=== PATIENT | female | born 1985 | race Caucasian/White ===

== ENCOUNTER 2021-08-03 17:09 | Observation (INO) | payer OTHER ==
--- NOTE | 2021-08-03 17:11 | ERPHSYRPT ---
- History of Present Illness Time Seen by Provider: 08/03/21 17:11 Historian: patient Exam Limitations: no limitations Physician History: This is an overweight 36-year-old white female who has had a cholecystectomy in the past and presents with relatively sudden onset of bilateral upper quadrant epigastric abdominal pain that started this morning and has progressively worsened. She has had associated vomiting today. She denies chest pain. She denies diarrhea. The pain is sharp and constant. Patient states it does feel like gallbladder pain that she had in the past. Patient recently had all her teeth removed and she has been drinking clear thick and full liquids. She also had some stuffing last night. She was feeling fine last night Timing/Duration: today Activities at Onset: none Abdominal Pain Onset Location: RUQ, LUQ, epigastric Pain Radiation: no radiation Severity of Pain-Max: moderate Severity of Pain-Current: moderate Modifying Factors: Improves With: nothing Associated Symptoms: loss of appetite, nausea, vomiting, No chest pain, No diaphoresis, No diarrhea Previous symptoms: no prior history, no recent treatment Allergies/Adverse Reactions: No Known Drug Allergies Allergy (Unverified 08/03/21 17:30) Home Medications: No Reportable Medications [No Reported Medications] 08/03/21 [History] Travel Risk - International Travel Have you traveled outside of the country in past 3 weeks: No - Coronavirus Screening Are you exhibiting any of the following symptoms?: No Close contact with a COVID-19 positive Pt in past 14-21 Days: No - Review of Systems Constitutional: No Symptoms Eyes: No Symptoms Ears, Nose, & Throat: No Symptoms Respiratory: No Symptoms Cardiac: No Symptoms Abdominal/Gastrointestinal: Abdominal Pain, Nausea, Vomiting, No Diarrhea, No Constipation Genitourinary Symptoms: No Symptoms Musculoskeletal: No Symptoms Skin: No Symptoms Neurological: No Symptoms Psychological: No Symptoms Endocrine: No Symptoms Hematologic/Lymphatic: No Symptoms Immunological/Allergic: No Symptoms All Other Systems: Reviewed and Negative - Past Medical History Pertinent Past Medical History: Yes - Past Surgical History Past Surgical History: Yes - Nursing Vital Signs Nursing Vital Signs: Initial Vital Signs Temperature 97.2 F 08/03/21 17:20 Pulse Rate 77 08/03/21 17:20 Respiratory Rate 18 08/03/21 17:20 Blood Pressure 117/83 08/03/21 17:20 O2 Sat by Pulse Oximetry 98 08/03/21 17:20 Pain Scale Pain Intensity 4 - Physical Exam General Appearance: mild distress, alert, anxiety, obese Eye Exam: PERRL/EOMI, eyes nml inspection Ears, Nose, Throat Exam: normal ENT inspection, moist mucous membranes Neck Exam: normal inspection, non-tender, supple, full range of motion Respiratory Exam: normal breath sounds, lungs clear, airway intact, No chest tenderness, No respiratory distress Cardiovascular Exam: regular rate/rhythm, normal heart sounds, normal peripheral pulses Gastrointestinal/Abdomen Exam: soft, normal bowel sounds, tenderness, guarding (Bilateral upper quadrants and epigastric area), No pulsatile mass Pelvic Exam: not done Rectal Exam: not done Back Exam: normal inspection, normal range of motion, No CVA tenderness, No vertebral tenderness Extremity Exam: normal inspection, normal range of motion, pelvis stable Neurologic Exam: alert, oriented x 3, cooperative, 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, normal mood/affect, nml cerebellar function, nml station & gait, sensation nml Skin Exam: normal color, warm, dry Lymphatic Exam: No adenopathy SpO2 Interpretation: normal O2 Delivery: Room Air - Course Nursing assessment & vital signs reviewed: Yes Ordered Tests: Active Orders 24 hr Category Date Time Status IV Insertion STAT Care 08/03/21 17:18 Active ABDOMEN AND PELVIS W/0 CONTRAS [CT] Stat Exams 08/03/21 17:19 Taken AMYLASE Stat Lab 08/03/21 17:50 Completed CBC W DIFF Stat Lab 08/03/21 17:50 Completed CMP Stat Lab 08/03/21 17:50 Completed CULTURE,URINE Stat Lab 08/03/21 17:30 Received HCG,QUALITATIVE URINE Stat Lab 08/03/21 17:30 Completed LIPASE Stat Lab 08/03/21 17:50 Completed UA W/RFX CULTURE Stat Lab 08/03/21 17:30 Completed Medication Summary Generic Name Dose Route Start Last Admin Trade Name Freq PRN Reason Stop Dose Admin Piperacillin Sod/Tazobactam 100 mls @ 200 mls/hr 08/03/21 19:33 Sod 3.375 gm/ Sodium Chloride IV 08/03/21 20:02 STAT ONE Discontinued Medications Generic Name Dose Route Start Last Admin Trade Name Freq PRN Reason Stop Dose Admin Hydromorphone HCl 1 mg 08/03/21 17:18 08/03/21 17:51 Hydromorphone 1 Mg/1ml Inj 1 Mg/Ml Syringe IV 08/03/21 17:19 1 mg STAT ONE Administration Hydromorphone HCl Confirm 08/03/21 17:49 Hydromorphone 1 Mg/1ml Inj 1 Mg/Ml Syringe Administered 08/03/21 17:50 Dose 1 mg .ROUTE .STK-MED ONE Sodium Chloride 1,000 mls @ 999 mls/hr 08/03/21 17:18 08/03/21 19:19 Sodium Chloride 0.9% 1000 Ml IV 08/03/21 18:18 Infused .Q1H1M STA Infusion Sodium Chloride Confirm 08/03/21 17:49 Sodium Chloride 0.9% 1000 Ml Administered 08/03/21 17:50 Dose 1,000 mls @ ud .ROUTE .STK-MED ONE Ondansetron HCl 4 mg 08/03/21 17:18 08/03/21 17:52 Ondansetron Hcl 4 Mg/2 Ml Vial IV 08/03/21 17:19 4 mg STAT ONE Administration Ondansetron HCl Confirm 08/03/21 17:49 Ondansetron Hcl 4 Mg/2 Ml Vial Administered 08/03/21 17:50 Dose 4 mg .ROUTE .STK-MED ONE Pantoprazole Sodium 40 mg 08/03/21 17:18 08/03/21 17:51 Pantoprazole 40 Mg Vial IV 08/03/21 17:19 40 mg STAT ONE Administration Pantoprazole Sodium Confirm 08/03/21 17:49 Pantoprazole 40 Mg Vial Administered 08/03/21 17:50 Dose 40 mg IV .STK-MED ONE Lab/Rad Data: Laboratory Result Diagrams 08/03/21 17:50 08/03/21 17:50 Laboratory Results 08/03/21 08/03/21 08/03/21 Range/Units 17:50 17:50 17:30 WBC 20.2 H (4.0-10.5) x10^3/uL RBC 4.83 (4.1-5.4) x10^6/uL Hgb 14.5 (12.0-16.0) g/dL Hct 42.5 (35-47) % MCV 88.0 (78-100) fL MCH 30.0 (26-32) pg MCHC 34.1 (32-36) g/dL RDW 13.4 (11.5-14.0) % Plt Count 352 (150-450) x10^3/uL MPV 10.9 (7.5-11.0) fL Gran % 81.7 H (36.0-66.0) % Immature Gran % (Auto) 0.5 H (0.00-0.4) % Nucleat RBC Rel Count 0.0 (0.00-0.1) % Eos # (Auto) 0.10 (0-0.5) x10^3/uL Immature Gran # (Auto) 0.10 H (0.00-0.03) x10^3u/L Absolute Lymphs (auto) 2.36 (1.0-4.6) x10^3/uL Absolute Monos (auto) 1.06 (0.0-1.3) x10^3/uL Absolute Nucleated RBC 0.00 (0.00-0.01) x10^3u/L Lymphocytes % 11.7 L (24.0-44.0) % Monocytes % 5.2 (0.0-12.0) % Eosinophils % 0.5 (0.00-5.0) % Basophils % 0.4 (0.0-0.4) % Absolute Granulocytes 16.53 H (1.4-6.9) x10^3/uL Basophils # 0.08 (0-0.4) x10^3/uL Sodium 137 (137-145) mmol/L Potassium 4.3 (3.5-5.1) mmol/L Chloride 104 (98-107) mmol/L Carbon Dioxide 24 (22-30) mmol/L Anion Gap 13.1 (5-15) MEQ/L BUN 7 (7-17) mg/dL Creatinine 0.70 (0.52-1.04) mg/dL Estimated GFR > 60.0 ML/MIN Glucose 112 H (74-106) mg/dL Calcium 9.6 (8.4-10.2) mg/dL Total Bilirubin 0.50 (0.2-1.3) mg/dL AST 28 (14-36) U/L ALT 28 (0-35) U/L Alkaline Phosphatase 127 H (38-126) U/L Serum Total Protein 8.0 (6.3-8.2) g/dL Albumin 4.3 (3.5-5.0) g/dL Amylase 57 (30-110) U/L Lipase 44 (23-300) U/L Urinalys Dipstick Clnc MAIN LAB Urine Color YELLOW (YELLOW) Urine Appearance CLEAR (CLEAR) Urine pH 8.5 (5-6) Ur Specific [place] 1.025 (1.005-1.025) POC Urine Protein Conf NEGATIVE (Negative) Urine Ketones SMALL-15 (NEGATIVE) Urine Nitrite NEGATIVE (NEGATIVE) Urine Bilirubin NEGATIVE (NEGATIVE) Urine Urobilinogen 0.2 (0-1) mg/dL Urine Leukocytes TRACE (NEGATIVE) Urine WBC (Auto) 0-2 (0-5) /HPF Urine RBC (Auto) 3-5 (0-2) /HPF U Epithel Cells (Auto) RARE (FEW) /HPF Urine Bacteria (Auto) NONE SEEN (NEGATIVE) /HPF Urine RBC SMALL (0-5) Thaddeus/ul Urine Mucus (Auto) SLIGHT (NEGATIVE) /HPF Ur Culture Indicated? YES Urine Glucose NEGATIVE (NEGATIVE) mg/dL Urine HCG, Qual (Negative) 08/03/21 Range/Units 17:30 WBC (4.0-10.5) x10^3/uL RBC (4.1-5.4) x10^6/uL Hgb (12.0-16.0) g/dL Hct (35-47) % MCV (78-100) fL MCH (26-32) pg MCHC (32-36) g/dL RDW (11.5-14.0) % Plt Count (150-450) x10^3/uL MPV (7.5-11.0) fL Gran % (36.0-66.0) % Immature Gran % (Auto) (0.00-0.4) % Nucleat RBC Rel Count (0.00-0.1) % Eos # (Auto) (0-0.5) x10^3/uL Immature Gran # (Auto) (0.00-0.03) x10^3u/L Absolute Lymphs (auto) (1.0-4.6) x10^3/uL Absolute Monos (auto) (0.0-1.3) x10^3/uL Absolute Nucleated RBC (0.00-0.01) x10^3u/L Lymphocytes % (24.0-44.0) % Monocytes % (0.0-12.0) % Eosinophils % (0.00-5.0) % Basophils % (0.0-0.4) % Absolute Granulocytes (1.4-6.9) x10^3/uL Basophils # (0-0.4) x10^3/uL Sodium (137-145) mmol/L Potassium (3.5-5.1) mmol/L Chloride (98-107) mmol/L Carbon Dioxide (22-30) mmol/L Anion Gap (5-15) MEQ/L BUN (7-17) mg/dL Creatinine (0.52-1.04) mg/dL Estimated GFR ML/MIN Glucose (74-106) mg/dL Calcium (8.4-10.2) mg/dL Total Bilirubin (0.2-1.3) mg/dL AST (14-36) U/L ALT (0-35) U/L Alkaline Phosphatase (38-126) U/L Serum Total Protein (6.3-8.2) g/dL Albumin (3.5-5.0) g/dL Amylase (30-110) U/L Lipase (23-300) U/L Urinalys Dipstick Clnc Urine Color (YELLOW) Urine Appearance (CLEAR) Urine pH (5-6) Ur Specific [place] (1.005-1.025) POC Urine Protein Conf (Negative) Urine Ketones (NEGATIVE) Urine Nitrite (NEGATIVE) Urine Bilirubin (NEGATIVE) Urine Urobilinogen (0-1) mg/dL Urine Leukocytes (NEGATIVE) Urine WBC (Auto) (0-5) /HPF Urine RBC (Auto) (0-2) /HPF U Epithel Cells (Auto) (FEW) /HPF Urine Bacteria (Auto) (NEGATIVE) /HPF Urine RBC (0-5) Thaddeus/ul Urine Mucus (Auto) (NEGATIVE) /HPF Ur Culture Indicated? Urine Glucose (NEGATIVE) mg/dL Urine HCG, Qual NEGATIVE (Negative) - Progress Progress: improved, pain not gone completely Progress Note: 08/03/21 19:40 CAT scan of the abdomen pelvis shows acute appendicitis without evidence of perforation or abscess. In addition, there is a 3.8 cm cystic structure within the right adnexa likely right ovarian cyst. Recommend further evaluation with ultrasound on a nonemergent basis. These findings were discussed with the patient. 08/03/21 19:43 Medical decision making: I spoke with Dr. Massimo Flowers, our general surgeon. He will be performing laparoscopic, possible open appendectomy at around 9 PM this evening. Patient will stay in the emergency department until time of surgery. Discussed with : Michael Counseled pt/family regarding: lab results, diagnosis, rad results - Departure Departure Disposition: Home Clinical Impression: Acute appendicitis, Right ovarian cyst Condition: Stable Critical Care Time: No
[2021-08-03] MEDS ORDERED: PROTONIX 40 MG IV IV ONE ×2 (17:18→17:49)
[2021-08-03] MEDS ORDERED: Zofran 4 MG/2 ML VIAL IV ONE ×2 (17:18→19:54)
[2021-08-03] MEDS ORDERED: Sodium Chloride 0.9% 1000 ML 1,000 ML IV STA ×2 (17:18→19:39)
[2021-08-03] MEDS ORDERED: Hydromorphone 1 mg/ml Injection IV ONE ×2 (17:18→19:54)
[2021-08-03 17:39] LABS: Appearance CLEAR (CLEAR); Bilirubin NEGATIVE (NEGATIVE); Dipstick done @ ? MAIN LAB; Glucose NEGATIVE (NEGATIVE); Ketones SMALL-15 (NEGATIVE); Nitrite NEGATIVE (NEGATIVE); Ph 8.5 (5-6); Protein,Urine Dip NEGATIVE (Negative); RBC SMALL Ery/ul (0-5); Specific Gravity 1.025 (1.005-1.025); Urobilinogen 0.2 mg/dL (0-1)
[2021-08-03 17:44] LABS: Epithelial Cells RARE /HPF (FEW); Mucus SLIGHT /HPF (NEGATIVE); WBC 0-2 /HPF (0-5)
[2021-08-03 17:47] LABS: Bacteria NONE SEEN /HPF (NEGATIVE)
[2021-08-03] MEDS ORDERED: Zofran 4 MG/2 ML VIAL ONE ×4 (17:49→22:18)
[2021-08-03] MEDS ORDERED: Hydromorphone 1 mg/ml Injection ONE ×3 (17:49→22:02)
[2021-08-03] MEDS ORDERED: Sodium Chloride 0.9% 1000 ML 1,000 ML ONE ×2 (17:49→19:43)
[2021-08-03 17:50] LABS: Urine Cultured Indicated? YES
[2021-08-03 18:07] LABS: Absolute Neutrophil Ct (ANC) 16.53 x10^3/uL (1.4-6.9); Basophil (Absolute #) 0.08 x10^3/uL (0-0.4); Eosinophil % 0.5 % (0.00-5.0); Hematocrit 42.5 % (35-47); Hemoglobin 14.5 g/dL (12.0-16.0); Lymphocyte (Absolute #) 2.36 x10^3/uL (1.0-4.6); Lymphocytes % 11.7 % (24.0-44.0); Mean Corpuscular Hgb Concent. 34.1 g/dL (32-36); Mean Platelet Volume 10.9 fL (7.5-11.0); Monocyte (Absolute #) 1.06 x10^3/uL (0.0-1.3); Monocytes % 5.2 % (0.0-12.0); Neutrophil % 81.7 % (36.0-66.0); Platelet Count 352 x10^3/uL (150-450); Red Blood Count 4.83 x10^6/uL (4.1-5.4); Red Cell Distribution Width 13.4 % (11.5-14.0); White Blood Count 20.2 x10^3/uL (4.0-10.5)
[2021-08-03 18:19] LABS: ALBUMIN 4.3 g/dL (3.5-5.0); ALKALINE PHOSPHATASE 127 U/L (38-126); AMYLASE 57 U/L (30-110); ANION GAP 13.1 MEQ/L (5-15); BLOOD UREA NITROGEN 7 mg/dL (7-17); CHLORIDE 104 mmol/L (98-107); Calcium 9.6 mg/dL (8.4-10.2); Carbon Dioxide 24 mmol/L (22-30); EST GLOMERULAR FILTRATION RATE > 60.0 ML/MIN; Glucose 112 mg/dL (74-106); LIPASE 44 U/L (23-300); Potassium 4.3 mmol/L (3.5-5.1); SGOT/AST 28 U/L (14-36); SGPT/ALT 28 U/L (0-35); SODIUM 137 mmol/L (137-145)
[2021-08-03] MEDS ORDERED: PIPERACILLIN/TAZOBACTAM 3.375 GM in Sodium Chloride 100ML MINI-BAG PLUS 100 ML IV ONE (19:33)
[2021-08-03] MEDS ORDERED: Sodium Chloride 100ML MINI-BAG PLUS 100 ML IV ONE (19:41)
[2021-08-03] MEDS ORDERED: PIPERACILLIN/TAZOBACTAM IV ONE (19:41)
--- NOTE | 2021-08-03 20:42 | XRAY ---
Indication: Right upper quadrant and epigastric pain. Vomiting. Multiple contiguous axial images obtained through the abdomen and pelvis without contrast. Comparison: None Lung bases clear. Heart not enlarged. Noncontrasted stomach and bowel loops appear nonobstructed. Prominent appendix up to 12 mm in diameter with 3-4 mm proximal/distal appendicoliths and minimal periappendiceal stranding favoring acute appendicitis. No free fluid/air. Incidental 5.4 cm right ovary cyst and cholecystectomy clips. Remaining liver, pancreas, spleen, adrenal glands, kidneys, ureters, bladder, uterus, and aorta are unremarkable for noncontrast exam. Osseous structures intact. Impression: 1. CT findings as detailed favoring acute appendicitis. No complications. 2. 5.4 cm right ovary cyst better evaluated with ultrasound if clinically warranted. Comment: Preliminary interpretation made by [facility]. No critical discrepancy.
[2021-08-03] MEDS ORDERED: Lactated Ringers 1,000 ML IV ONE (20:45)
[2021-08-03] MEDS ORDERED: Sensorcaine 0.25% 10 ML ONE (20:45)
[2021-08-03] MEDS ORDERED: Decadron 4 MG INJ ONE (20:50)
[2021-08-03] MEDS ORDERED: Xylocaine-Mpf 2% 5 Ml Vial ONE (20:50)
[2021-08-03] MEDS ORDERED: BRIDION 200MG/2ML IV ONE (20:50)
[2021-08-03] MEDS ORDERED: DIPRIVAN 200 MG/20 ML IV ONE (20:50)
[2021-08-03] MEDS ORDERED: TORAdol 30 mg Injection ONE (20:50)
[2021-08-03] MEDS ORDERED: Zemuron 100 MG/10 ML ONE (20:51)
[2021-08-03] MEDS ORDERED: SUBLIMAZE 250 MCG/5 ML ONE (20:51)
[2021-08-03 21:01] LABS: INFLUENZA A NEGATIVE (NEGATIVE); INFLUENZA B NEGATIVE (NEGATIVE); RESPIRATORY SYNCTIAL VIRUS NEGATIVE (Negative); SARS-CoV-2 Xpert Express NEGATIVE (NEGATIVE)
[2021-08-03] MEDS ORDERED: KEFZOL 1 GM ONE (21:10)
[2021-08-03] MEDS ORDERED: Compazine 10 MG/2 ML ONE (21:58)
[2021-08-03] MEDS ORDERED: SUBLIMAZE 100 MCG/2 ML ONE (22:02)
[2021-08-03] MEDS ORDERED: NORCO 5/325 MG PO PRN (22:53)
[2021-08-03] MEDS ORDERED: Zofran 4 MG/2 ML VIAL IV PRN (22:54)
[2021-08-03] MEDS ORDERED: Unasyn 3 GM Vial ONE (23:47)
[2021-08-03] MEDS ORDERED: Sodium Chloride 0.9% 100 ML ONE (23:49)
[2021-08-03] MEDS: Unasyn 3 GM Vial*** 3 G in Sodium Chloride 100ML MINI-BAG PLUS 100 ML IV SCH (23:55)
[2021-08-04] MEDS ORDERED: Lactated Ringers 1,000 ML IV SCH (05:00)
[2021-08-04] MEDS ORDERED: Unasyn 3 GM Vial ONE (05:38)
[2021-08-04] MEDS ORDERED: Sodium Chloride 0.9% 100 ML ONE (05:40)
[2021-08-04] MEDS: Unasyn 3 GM Vial*** 3 G in Sodium Chloride 100ML MINI-BAG PLUS 100 ML IV SCH (05:49)
[2021-08-04 06:03] LABS: Hematocrit 39.9 % (35-47); Hemoglobin 13.5 g/dL (12.0-16.0); Mean Cell Volume 89.5 fL (78-100); Mean Corpuscular Hemoglobin 30.3 pg (26-32); Mean Corpuscular Hgb Concent. 33.8 g/dL (32-36); Mean Platelet Volume 11.1 fL (7.5-11.0); Platelet Count 307 x10^3/uL (150-450); Red Blood Count 4.46 x10^6/uL (4.1-5.4); Red Cell Distribution Width 13.7 % (11.5-14.0); White Blood Count 17.7 x10^3/uL (4.0-10.5)
[2021-08-04 08:10] VITALS: BP 99/52; PULSE 68; O2SAT 94
--- NOTE | 2021-08-06 10:31 | OP ---
SURGERY DATE/TIME: 08/03/2021 PREOPERATIVE DIAGNOSIS: Acute appendicitis. POSTOPERATIVE DIAGNOSIS: Acute appendicitis. PROCEDURE: Laparoscopic appendectomy. SURGEON: Massimo Flowers M.D. ANESTHESIA: General. COMPLICATIONS: None. CONDITION: Stable. ESTIMATED BLOOD LOSS: 150 cc. INDICATION: A patient with acute appendicitis. Seen and examined in the emergency room. White count 20,000. CT positive. Abdomen consistent with appendicitis. DESCRIPTION OF PROCEDURE: Taken to the OR. General anesthetic. Routine prep and drape. She was a quite robust lady. Veress inserted at the umbilicus in the midline at an oblique angle. Popped in nicely, inflated from 4 to 15. A 5 port was placed in the right upper quadrant, 5 port placed in right lower quadrant, 12 port then brought in at the umbilicus. She was quite obese. The lens initially was a little hazy and fuzzy but it got straightened out. The appendix was short, was 2.5 inches and it laid right over the pelvic brim down towards the uterus. There were some adhesions on the right ovary and tube to the pelvis side wall and to the deep pelvic side wall. It had about a 4 cm cyst that appeared benign. The left adnexa also had some fixation appeared benign. Uterus satisfactory. The Veress needle was in the open air in the middle when it was first seen by the right upper quadrant port. There was light mobilization of the cecum from the iliac pelvic brim. At this time the mesoappendix, appendix were taken with one cartridge 2.5 at its base clearly across the tinea, placed in a condom bag and removed. There was about 100 cc of blood in the mid, starting over by the appendiceal-mesoappendix and then running across small loops over towards the left side. It looked like an adhesion was torn from the pneumoperitoneum on the left side by the sigmoid. I did not see anything specific about this or anything that needed any action. After this blood was suctioned, it did not recur. The retroperitoneum seemed okay. In the mesentery there was no specific hole or squirting sign any place. It certainly settled but it was a little unclear the mechanism of this. The hole closure device was not used as the hole was oblique enough that the finger could not be shoved in this hole at all. Skin closed with 4-0 Vicryl and Steri-Strips. The patient tolerated the procedure satisfactorily with the above findings.
--- NOTE | 2021-08-06 14:16 | SSS ---
DISCHARGE DIAGNOSIS: ACUTE APPENDICITIS. PROCEDURE: Laparoscopic appendectomy by Dr. Massimo Flowers. HISTORY: The patient is a 36-year-old white female who presented to the emergency room with complaints of abdominal pain. She reports it was upper in nature initially where she previously had her gallbladder removed. During the evaluation the patient had a CT scan which was concerning for the possibility of acute appendicitis. The patient was kept in the emergency room until the surgeons arrived. They performed a laparoscopic appendectomy and the patient was placed in observation. HOSPITAL COURSE: While the patient was in observation did well overnight. She was able to eat by the next morning and was looking quite good and ready for discharge home. She was discharged home on Augmentin 875 twice a day and [place] PRN for pain. She will follow up in the surgeon's office in the next week and she is to return to the hospital for any further problems in the interim.
== END 2021-08-04 10:55 | disposition home or self-care (01) ==
LOC: ED 17:09 → MED SURG 22:35
PROVIDERS: ADMIT Family Medicine; ATTEND Family Medicine
DX: K35.80 Unspecified acute appendicitis (principal); Z20.828 Contact with and (suspected) exposure to other viral communicable diseases
CPT/HCPCS: 0241U; 36000; 36415; 44970; 74176; 80053; 81015; 81025; 82150; 83690; 85025; 85027; 87086; 96360; 96374; 96375; 99284; 96361; 96365; 96376; G0378; J0295; J0690; J1100; J1170; J1885; J2405; J2704; J3010; A9270-GY

== ENCOUNTER 2022-10-14 22:22 | Inpatient (IN) | payer OTHER ==
[2022-10-14] MEDS ORDERED: Zofran 4 MG/2 ML VIAL IV PRN (22:43)
[2022-10-14] MEDS ORDERED: XYLOCAINE 1% HCL 20 ML MDV IJ PRN (22:43)
[2022-10-14] MEDS ORDERED: Nubain 10 MG/ML IV PRN (22:43)
[2022-10-14] MEDS ORDERED: TYLENOL EXTRA STRENGTH 500 MG PO PRN (22:43)
[2022-10-14] MEDS ORDERED: STADOL 2 MG IV PRN (22:43)
[2022-10-14] MEDS ORDERED: Lactated Ringers 1,000 ML IV SCH (23:00)
[2022-10-14] MEDS ORDERED: PITOCIN 30 UNITS/ LR 500 ML 30 UNITS/500 ML PLAST..BAG IV SCH (23:00)
[2022-10-14] MEDS ORDERED: Lactated Ringers 1,000 ML IV ONE (23:35)
[2022-10-15] MEDS ORDERED: FENTANYL 2 MCG-BUPIV 0.125%-NS 250 ML Epidur 250 ML EPIDURAL SCH (00:15)
[2022-10-15 00:16] LABS: Amphetamine,Urine NEGATIVE (NEGATIVE); Barbiturate,Urine NEGATIVE (NEGATIVE); Benzodiazepine,Urine NEGATIVE (NEGATIVE); Cocaine,Urine NEGATIVE (NEGATIVE); Methadone,Urine NEGATIVE (NEGATIVE); Opiate,Urine NEGATIVE (NEGATIVE); PCP,Urine NEGATIVE (NEGATIVE); THC,Urine POSITIVE (NEGATIVE)
[2022-10-15 00:25] LABS: Hematocrit 36.8 % (35-47); Hemoglobin 12.5 g/dL (12.0-16.0); Mean Cell Volume 87.2 fL (78-100); Mean Corpuscular Hemoglobin 29.6 pg (26-32); Mean Platelet Volume 11.6 fL (7.5-11.0); Platelet Count 315 x10^3/uL (150-450); Red Blood Count 4.22 x10^6/uL (4.1-5.4); White Blood Count 18.7 x10^3/uL (4.0-10.5)
[2022-10-15] MEDS ORDERED: Lactated Ringers 1,000 ML IV ONE ×2 (02:19→02:53)
[2022-10-15 05:46] LABS: ABO TYPING A; Antibody Screen NEGATIVE (NEGATIVE); RH TYPING NEGATIVE
[2022-10-15] MEDS ORDERED: CORTISONE 1% CREAM TP PRN (09:23)
[2022-10-15] MEDS ORDERED: Dulcolax 10 MG SUPP PR PRN (09:23)
[2022-10-15] MEDS ORDERED: Ambien 10 MG PO PRN (09:23)
[2022-10-15] MEDS ORDERED: TUCKS TP PRN (09:23)
[2022-10-15] MEDS ORDERED: Anucort-HC SUPPOSITORY PR PRN (09:23)
[2022-10-15] MEDS ORDERED: Dermoplast Spray TP PRN (09:23)
[2022-10-15] MEDS ORDERED: Mylicon 80MG PO PRN (09:23)
[2022-10-15] MEDS ORDERED: Adacel Vial IM ONE (09:23)
[2022-10-15] MEDS ORDERED: LANSINOH 40 GM TOP PRN (09:23)
[2022-10-15] MEDS ORDERED: NORCO 5/325 MG PO PRN (09:23)
[2022-10-15] MEDS ORDERED: Rhogam Plus 300 MCG IM ONE (09:29)
[2022-10-15] MEDS: MOTRIN 400 MG PO PRN (22:13)
[2022-10-15] MEDS: Docusate Sodium 100 MG PO SCH (22:17)
[2022-10-16 04:54] LABS: Absolute Neutrophil Ct (ANC) 17.93 x10^3/uL (1.4-6.9); BASOPHIL % 0.3 % (0.0-0.4); Basophil (Absolute #) 0.08 x10^3/uL (0-0.4); Eosinophil % 1.7 % (0.00-5.0); Eosinophil (Absolute #) 0.39 x10^3/uL (0-0.5); Hematocrit 36.3 % (35-47); Hemoglobin 11.9 g/dL (12.0-16.0); IMMATURE GRAN # 0.15 x10^3u/L (0.00-0.03); IMMATURE GRAN % 0.6 % (0.00-0.4); Lymphocyte (Absolute #) 3.36 x10^3/uL (1.0-4.6); Lymphocytes % 14.4 % (24.0-44.0); Mean Cell Volume 89.6 fL (78-100); Mean Corpuscular Hemoglobin 29.4 pg (26-32); Mean Corpuscular Hgb Concent. 32.8 g/dL (32-36); Mean Platelet Volume 11.6 fL (7.5-11.0); Monocyte (Absolute #) 1.43 x10^3/uL (0.0-1.3); Monocytes % 6.1 % (0.0-12.0); Neutrophil % 76.9 % (36.0-66.0); Platelet Count 278 x10^3/uL (150-450); Red Blood Count 4.05 x10^6/uL (4.1-5.4); Red Cell Distribution Width 14.4 % (11.5-14.0); White Blood Count 23.3 x10^3/uL (4.0-10.5)
--- NOTE | 2022-10-16 07:57 | PCM.NOTE ---
Date and Time: 10/16/22 0756 Subjective Assessment: ppd 1 sp pt resting in bed and doing well able to ambulate and tolerate diet vss afebrilea abd; soft uterus; firm lochia; mild a/p sp ppd 1 dc home tomorrow fu office in 3 wks stable hgb OBJECTIVE DATA Vital Signs: Vital Signs - 24 hr Temp Pulse Resp BP BP BP Pulse Ox 10/16/22 05:15 98.1 F 78 17 109/58 10/16/22 00:40 98.2 F 78 18 107/57 10/15/22 19:45 98.3 F 88 18 115/59 10/15/22 14:00 98.8 F 85 20 116/62 10/15/22 11:25 98.8 F 87 20 121/55 100 10/15/22 11:10 86 20 127/60 98 10/15/22 10:55 96 H 20 127/58 99 10/15/22 10:40 96 H 22 134/64 99 10/15/22 10:30 98.8 F 100 H 22 155/65 10/15/22 10:00 86 20 135/65 135/65 98 10/15/22 09:30 92 H 22 114/64 114/64 10/15/22 09:00 91 H 20 117/62 117/62 10/15/22 08:30 86 18 118/56 118/56 99 10/15/22 08:00 93 H 18 115/59 115/59 99 Pain Assessment - Last Documented Pain Intensity [Lower] 2 Pain Intensity 0 Pain Scale Used 0-10 Pain Scale Intake and Output: Intake & Output 10/13/22 10/14/22 10/15/22 10/16/22 11:59 11:59 11:59 11:59 Intake Total 1600 500 Output Total 400 Balance 1200 500 Weight 108.862 kg Lab Results: Lab Results-Last 24 Hours 10/15/22 10/16/22 Range/Units 12:55 04:18 WBC 23.3 H (4.0-10.5) x10^3/uL RBC 4.05 L (4.1-5.4) x10^6/uL Hgb 11.9 L (12.0-16.0) g/dL Hct 36.3 (35-47) % MCV 89.6 (78-100) fL MCH 29.4 (26-32) pg MCHC 32.8 (32-36) g/dL RDW 14.4 H (11.5-14.0) % Plt Count 278 (150-450) x10^3/uL MPV 11.6 H (7.5-11.0) fL Gran % 76.9 H (36.0-66.0) % Immature Gran % (Auto) 0.6 H (0.00-0.4) % Nucleat RBC Rel Count 0.0 (0.00-0.1) % Eos # (Auto) 0.39 (0-0.5) x10^3/uL Immature Gran # (Auto) 0.15 H (0.00-0.03) x10^3u/L Absolute Lymphs (auto) 3.36 (1.0-4.6) x10^3/uL Absolute Monos (auto) 1.43 H (0.0-1.3) x10^3/uL Absolute Nucleated RBC 0.00 (0.00-0.01) x10^3u/L Lymphocytes % 14.4 L (24.0-44.0) % Monocytes % 6.1 (0.0-12.0) % Eosinophils % 1.7 (0.00-5.0) % Basophils % 0.3 (0.0-0.4) % Absolute Granulocytes 17.93 H (1.4-6.9) x10^3/uL Basophils # 0.08 (0-0.4) x10^3/uL Screen SEE SEPARATE REPORT Assessment/Plan (1) Vaginal delivery Current Visit: Yes Status: Acute Code(s): O80 - ENCOUNTER FOR FULL-TERM UNCOMPLICATED DELIVERY
--- NOTE | 2022-10-16 07:59 | PCM.DS ---
Discharge Summary Date of Admission: 10/14/22 22:22 Admitting Physician: YULISA SPARKS DO Consults: Consults on Case 10/15/22 00:11 Notify Anesthesia Provider PRN 10/15/22 09:23 Notify Physician ROUTINE 10/15/22 14:36 Navigation ONCE Primary Care Provider: NO FAMILY DOCTOR Allergies Allergies No Known Drug Allergies Allergy (Verified 10/15/22 00:52) Hospital Summary - Hospital Course Hospital Course: pt admitted on oct 15 at 37 3/7 wks gestation who came in with srom and in labor and subsequently delivered on oct 15 live baby boy via without complication. during period did well able to ambulate and tolerate diet. hgb stable at 11 and at this time stable for discharge on oct 17. all questions answered to her satisfaction and was advised to fu in office in 3 wks. - Vitals & Intake/Output Vital Signs: Vital Signs Temperature 98.1 F 10/16/22 05:15 Pulse Rate 78 10/16/22 05:15 Respiratory Rate 17 10/16/22 05:15 Blood Pressure 109/58 10/16/22 05:15 O2 Sat by Pulse Oximetry 100 10/15/22 11:25 Intake & Output: Intake & Output 10/13/22 10/14/22 10/15/22 10/16/22 11:59 11:59 11:59 11:59 Intake Total 1600 500 Output Total 400 Balance 1200 500 Weight 108.862 kg - Lab Result Diagrams: 10/16/22 04:18 Lab Results-Last 24 Hrs: Lab Results-Last 24 Hours 10/15/22 10/16/22 Range/Units 12:55 04:18 WBC 23.3 H (4.0-10.5) x10^3/uL RBC 4.05 L (4.1-5.4) x10^6/uL Hgb 11.9 L (12.0-16.0) g/dL Hct 36.3 (35-47) % MCV 89.6 (78-100) fL MCH 29.4 (26-32) pg MCHC 32.8 (32-36) g/dL RDW 14.4 H (11.5-14.0) % Plt Count 278 (150-450) x10^3/uL MPV 11.6 H (7.5-11.0) fL Gran % 76.9 H (36.0-66.0) % Immature Gran % (Auto) 0.6 H (0.00-0.4) % Nucleat RBC Rel Count 0.0 (0.00-0.1) % Eos # (Auto) 0.39 (0-0.5) x10^3/uL Immature Gran # (Auto) 0.15 H (0.00-0.03) x10^3u/L Absolute Lymphs (auto) 3.36 (1.0-4.6) x10^3/uL Absolute Monos (auto) 1.43 H (0.0-1.3) x10^3/uL Absolute Nucleated RBC 0.00 (0.00-0.01) x10^3u/L Lymphocytes % 14.4 L (24.0-44.0) % Monocytes % 6.1 (0.0-12.0) % Eosinophils % 1.7 (0.00-5.0) % Basophils % 0.3 (0.0-0.4) % Absolute Granulocytes 17.93 H (1.4-6.9) x10^3/uL Basophils # 0.08 (0-0.4) x10^3/uL Screen SEE SEPARATE REPORT - Procedures and Test Procedures and Tests throughout Hospitalization: Therapy Orders & Screens 10/14/22 23:22 Smoking Cessation Education ONCE Comment: Diagnosis: iup Smoking Status: Current every day smoker How long have you smoked: 20 Have you smoked in the past 12 months: Yes Approximately how many cigarettes per day: 1/2-1 ppd Do you dip or chew tobacco: No Final Diagnosis/Problem List - Final Discharge Diagnosis/Problem (1) Vaginal delivery Current Visit: Yes Status: Acute Code(s): O80 - ENCOUNTER FOR FULL-TERM UNCOMPLICATED DELIVERY - Discharge Disposition: Home, Self-Care Condition: Stable Prescriptions: No Action Aspirin EC 81 mg [Ecotrin 81 mg] 81 mg PO DAILY Metformin HCl 500 mg [Glucophage 500 MG] 500 mg PO BIDWM Pnv No.121/Iron/Folic Acid [ Multivitamin Tablet] 1 each PO DAILY Follow up with: DOCTOR,NO FAMILY [Primary Care Provider] - YULISA SPARKS DO [ACTIVE STAFF] - 3 weeks
[2022-10-16] MEDS: FERREX 150 PO SCH ×2 (09:35→14:10)
[2022-10-16] MEDS: Docusate Sodium 100 MG PO SCH ×3 (09:35→21:37)
[2022-10-16] MEDS: MOTRIN 400 MG PO PRN (18:45)
[2022-10-17 02:59] VITALS: RESP 18
[2022-10-17] MEDS: Docusate Sodium 100 MG PO SCH (08:23)
[2022-10-17] MEDS: FERREX 150 PO SCH (08:23)
[2022-10-17] MEDS: MOTRIN 400 MG PO PRN (08:26)
[2022-10-17 09:05] VITALS: BP 121/60; PULSE 76; TEMP 98.5; O2SAT 97
== END 2022-10-17 11:05 | disposition home or self-care (01) | DRG 807 ==
LOC: OBSVTOIN 22:22 → OB 22:22
PROVIDERS: ADMIT Obstetrics & Gynecology; ATTEND Obstetrics & Gynecology
PROC: 10E0XZZ Delivery of Products of Conception, External Approach (ICD-10-PCS; principal; 2022-10-15)
PROC: 0HQ9XZZ Repair Perineum Skin, External Approach (ICD-10-PCS; 2022-10-15)
DX: O70.0 First degree perineal laceration during delivery (principal); Z37.0 Single live birth; Z3A.37 37 weeks gestation of pregnancy; Z20.828 Contact with and (suspected) exposure to other viral communicable diseases
CPT/HCPCS: 36415; 59409; 80307; 82947; 85025; 85027; 85461; 86850; 86900; 86901; 90471; 90715; 96372; J2300; J2590; J2790; A9270-GY

== ENCOUNTER 2024-02-25 20:17 | Emergency (ER) | payer OTHER ==
--- NOTE | 2024-02-25 20:20 | ERPHSYRPT ---
- History of Present Illness Time Seen by Provider: 02/25/24 20:20 Historian: patient, family Exam Limitations: no limitations Physician History: This is an overweight 39-year-old white female patient who came in by private vehicle because of intractable vomiting that began at 4 AM this morning. Patient was diagnosed with COVID-19 infection 9 days ago. This morning she woke up with vomiting, muscle aches and headache. She vomited multiple times. She has had some abdominal pain secondary to multiple episodes of vomiting. She states she cannot hold any oral intake down. Patient has a history of diabetes, gastroesophageal reflux disease, anxiety, OCD and bipolar disorder. Timing/Duration: today Quality: aching Abdominal Pain Onset Location: generalized abdomen Severity of Pain-Max: moderate Severity of Pain-Current: mild Modifying Factors: Improves With: vomiting (Moderate) Associated Symptoms: headache, loss of appetite, nausea, vomiting, weakness, No chest pain, No shortness of breath Previous symptoms: no prior history, no recent treatment Allergies/Adverse Reactions: No Known Drug Allergies Allergy (Verified 02/25/24 20:23) Hx Tetanus, Diphtheria Vaccination/Date Given: No Hx Influenza Vaccination/Date Given: No Hx Pneumococcal Vaccination/Date Given: No Travel Risk - International Travel Have you traveled outside of the country in past 3 weeks: No - Emerging Infectious Disease Are you exhibiting symptoms associated with any current EIDs: Yes Symptoms: Abdominal Pain, Headaches/Body Aches/, Vomitting - Review of Systems Constitutional: Weakness Eyes: No Symptoms Ears, Nose, & Throat: No Symptoms Respiratory: No Symptoms Cardiac: No Symptoms Abdominal/Gastrointestinal: Abdominal Pain, Nausea, Vomiting, Appetite Changes Genitourinary Symptoms: No Symptoms Musculoskeletal: Arthralgias, Myalgias Skin: No Symptoms Neurological: No Symptoms Psychological: No Symptoms Endocrine: No Symptoms Hematologic/Lymphatic: No Symptoms Immunological/Allergic: No Symptoms All Other Systems: Reviewed and Negative - Past Medical History Pertinent Past Medical History: Yes Neurological History: No Pertinent History ENT History: No Pertinent History Cardiac History: No Pertinent History Respiratory History: No Pertinent History Endocrine Medical History: No Pertinent History Musculoskeletal History: No Pertinent History GI Medical History: GERD History: No Pertinent History Psycho-Social History: Anxiety, Bipolar, Other Female Reproductive Disorders: No Pertinent History Other Medical History: OCD - Past Surgical History Past Surgical History: Yes Neuro Surgical History: No Pertinent History Cardiac: No Pertinent History Respiratory: No Pertinent History Gastrointestinal: Appendectomy, Cholecystectomy Genitourinary: No Pertinent History Musculoskeletal: No Pertinent History Female Surgical History: No Pertinent History - Social History Smoking Status: Current every day smoker How long have you smoked: 20 Exposure to second hand smoke: Yes Drug Use: marijuana Patient Lives Alone: No - Nursing Vital Signs Nursing Vital Signs: Initial Vital Signs Temperature 96.6 F 02/25/24 20:24 Pulse Rate 115 H 02/25/24 20:24 Respiratory Rate 24 02/25/24 20:24 Blood Pressure 141/92 02/25/24 20:24 Pain Scale Pain Intensity 7 - Physical Exam General Appearance: mild distress, alert, anxiety, obese Eye Exam: PERRL/EOMI, eyes nml inspection Ears, Nose, Throat Exam: normal ENT inspection, moist mucous membranes Neck Exam: normal inspection, non-tender, supple, full range of motion Respiratory Exam: normal breath sounds, lungs clear, airway intact, No chest tenderness, No respiratory distress Cardiovascular Exam: tachycardia Gastrointestinal/Abdomen Exam: soft, normal bowel sounds, tenderness (Mild diffuse tenderness to palpation), No guarding, No rebound Pelvic Exam: not done Rectal Exam: not done Back Exam: normal inspection, normal range of motion, No CVA tenderness, No vertebral tenderness Extremity Exam: normal inspection, normal range of motion, pelvis stable Neurologic Exam: alert, oriented x 3, cooperative, 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, sensation nml Skin Exam: normal color, warm, dry Lymphatic Exam: No adenopathy SpO2 Interpretation: normal O2 Delivery: Room Air - Course Nursing assessment & vital signs reviewed: Yes Ordered Tests: Active Orders 24 hr Category Date Time Status IV Insertion STAT Care 02/25/24 21:11 Active AMYLASE Stat Lab 02/25/24 21:30 Completed CBC W DIFF Stat Lab 02/25/24 21:30 Completed CMP Stat Lab 02/25/24 21:30 Completed CULTURE,URINE Stat Lab 02/25/24 23:30 Received HCG QUALITATIVE, SERUM Stat Lab 02/25/24 21:30 Completed LIPASE Stat Lab 02/25/24 21:30 Completed MONO SCREEN Stat Lab 02/25/24 21:30 Completed UA W/RFX UR CULTURE Stat Lab 02/25/24 23:30 Completed Medication Summary Discontinued Medications Generic Name Dose Route Start Last Admin Trade Name Freq PRN Reason Stop Dose Admin Hydromorphone HCl 1 mg 02/25/24 21:11 02/25/24 21:23 Hydromorphone 1 Mg/1ml Inj IV 02/25/24 21:12 1 mg STAT ONE Administration Hydromorphone HCl Confirm 02/25/24 21:22 Hydromorphone 1 Mg/1ml Inj Administered 02/25/24 21:23 Dose 1 mg .ROUTE .STK-MED ONE Sodium Chloride 1,000 mls @ 999 mls/hr 02/25/24 21:11 02/25/24 22:28 Sodium Chloride 0.9% 1000 Ml IV 02/25/24 22:11 Infused .Q1H1M STA Infusion Sodium Chloride Confirm 02/25/24 21:22 Sodium Chloride 0.9% 1000 Ml Administered 02/25/24 21:23 Dose 1,000 mls @ ud .ROUTE .STK-MED ONE Lactated Ringer's 1,000 mls @ 999 mls/hr 02/25/24 22:20 02/25/24 23:30 Lactated Ringers IV 02/25/24 23:20 Infused .Q1H1M ONE Infusion Lactated Ringer's Confirm 02/25/24 22:23 Lactated Ringers Administered 02/25/24 22:24 Dose 1,000 mls @ ud IV .STK-MED ONE Ondansetron HCl 4 mg 02/25/24 21:11 02/25/24 21:23 Ondansetron Hcl 4 Mg/2 Ml Vial IV 02/25/24 21:12 4 mg STAT ONE Administration Ondansetron HCl Confirm 02/25/24 21:22 Ondansetron Hcl 4 Mg/2 Ml Vial Administered 02/25/24 21:23 Dose 4 mg .ROUTE .STK-MED ONE Pantoprazole Sodium 40 mg 02/25/24 21:11 02/25/24 21:23 Pantoprazole 40 Mg Vial IV 02/25/24 21:12 40 mg STAT ONE Administration Pantoprazole Sodium Confirm 02/25/24 21:22 Pantoprazole 40 Mg Vial Administered 02/25/24 21:23 Dose 40 mg IV .STK-MED ONE Lab/Rad Data: Laboratory Result Diagrams 02/25/24 21:30 02/25/24 21:30 Laboratory Results 02/25/24 02/25/24 02/25/24 Range/Units 23:30 21:35 21:30 WBC (3.98-10.04) x10^3/uL RBC (3.93-5.22) x10^6/uL Hgb (11.2-15.7) g/dL Hct (34.1-44.9) % MCV (79.4-94.8) fL MCH (25.6-32.2) pg MCHC (32.2-35.5) g/dL RDW (11.7-14.4) % Plt Count (182-369) x10^3/uL MPV (9.4-12.3) fL Gran % (34.0-71.1) % Immature Gran % (Auto) (0.001-0.429) % Nucleat RBC Rel Count (0.00-0.2) % Eos # (Auto) (0.04-0.36) x10^3/uL Immature Gran # (Auto) (0.001-0.031) x10^3u/L Absolute Lymphs (auto) (1.18-3.74) x10^3/uL Absolute Monos (auto) (0.24-0.86) x10^3/uL Absolute Nucleated RBC (0.00-0.012) x10^3u/L Lymphocytes % (19.3-51.7) % Monocytes % (4.7-12.5) % Eosinophils % (0.7-5.8) % Basophils % (0.1-1.2) % Absolute Granulocytes (1.56-6.13) x10^3/uL Basophils # (0.01-0.08) x10^3/uL Sodium (135-145) mmol/L Potassium (3.5-5.1) mmol/L Chloride (98-107) mmol/L Carbon Dioxide (22-30) mmol/L Anion Gap (5-15) MEQ/L BUN (7-17) mg/dL Creatinine (0.52-1.04) mg/dL Estimated GFR ML/MIN Glucose (74-106) mg/dL Calcium (8.4-10.2) mg/dL Total Bilirubin (0.2-1.3) mg/dL AST (14-36) U/L ALT (0-35) U/L Alkaline Phosphatase (38-126) U/L Serum Total Protein (6.3-8.2) g/dL Albumin (3.5-5.0) g/dL Amylase (30-110) U/L Lipase (23-300) U/L Serum HCG, Qual NEGATIVE (NEGATIVE) Urine Color Yellow (Yellow) Urine Appearance Clear (Clear) Urine pH 6.5 (4.6-8.0) Ur Specific [place] 1.025 (1.005-1.030) Urine Protein 30 (Negative) Urine Glucose (UA) Negative (Negative) mg/dL Urine Ketones Negative (Negative) Urine Blood Trace (Negative) Urine Nitrite Negative (Negative) Urine Bilirubin Negative (Negative) Urine Urobilinogen 0.2 (0.2) mg/dL Ur Leukocyte Esterase Small A (Negative) U Hyaline Cast (Auto) NONE SEEN (0-2) /LPF Urine Microscopic RBC 21-50 A (0-5) /HPF Urine Microscopic WBC 3-5 (0-5) /HPF Ur Epithelial Cells Rare (None Seen) /HPF Urine Bacteria None Seen (None Seen) /HPF Urine Culture Reflexed YES (NO) Monoscreen NEGATIVE (NEGATIVE) Influenza Type A Ag NEGATIVE (NEGATIVE) Influenza Type B Ag NEGATIVE (NEGATIVE) RSV (PCR) NEGATIVE (NEGATIVE) SARS-CoV-2 (PCR) POSITIVE A (NEGATIVE) 02/25/24 02/25/24 Range/Units 21:30 21:30 WBC 15.2 H (3.98-10.04) x10^3/uL RBC 5.71 H (3.93-5.22) x10^6/uL Hgb 16.7 H (11.2-15.7) g/dL Hct 48.2 H (34.1-44.9) % MCV 84.4 (79.4-94.8) fL MCH 29.2 (25.6-32.2) pg MCHC 34.6 (32.2-35.5) g/dL RDW 13.5 (11.7-14.4) % Plt Count 388 H (182-369) x10^3/uL MPV 10.7 (9.4-12.3) fL Gran % 87.6 H (34.0-71.1) % Immature Gran % (Auto) 0.7 H (0.001-0.429) % Nucleat RBC Rel Count 0.0 (0.00-0.2) % Eos # (Auto) 0.01 L (0.04-0.36) x10^3/uL Immature Gran # (Auto) 0.11 H (0.001-0.031) x10^3u/L Absolute Lymphs (auto) 0.82 L (1.18-3.74) x10^3/uL Absolute Monos (auto) 0.88 H (0.24-0.86) x10^3/uL Absolute Nucleated RBC 0.00 (0.00-0.012) x10^3u/L Lymphocytes % 5.4 L (19.3-51.7) % Monocytes % 5.8 (4.7-12.5) % Eosinophils % 0.1 L (0.7-5.8) % Basophils % 0.4 (0.1-1.2) % Absolute Granulocytes 13.32 H (1.56-6.13) x10^3/uL Basophils # 0.06 (0.01-0.08) x10^3/uL Sodium 132 L (135-145) mmol/L Potassium 3.9 (3.5-5.1) mmol/L Chloride 102 (98-107) mmol/L Carbon Dioxide 16 L* (22-30) mmol/L Anion Gap 18.5 H (5-15) MEQ/L BUN 16 (7-17) mg/dL Creatinine 0.81 (0.52-1.04) mg/dL Estimated GFR 95.2 ML/MIN Glucose 130 H (74-106) mg/dL Calcium 9.5 (8.4-10.2) mg/dL Total Bilirubin 0.90 (0.2-1.3) mg/dL AST 38 H (14-36) U/L ALT 44 H (0-35) U/L Alkaline Phosphatase 131 H (38-126) U/L Serum Total Protein 8.9 H (6.3-8.2) g/dL Albumin 4.8 (3.5-5.0) g/dL Amylase 55 (30-110) U/L Lipase 40 (23-300) U/L Serum HCG, Qual (NEGATIVE) Urine Color (Yellow) Urine Appearance (Clear) Urine pH (4.6-8.0) Ur Specific [place] (1.005-1.030) Urine Protein (Negative) Urine Glucose (UA) (Negative) mg/dL Urine Ketones (Negative) Urine Blood (Negative) Urine Nitrite (Negative) Urine Bilirubin (Negative) Urine Urobilinogen (0.2) mg/dL Ur Leukocyte Esterase (Negative) U Hyaline Cast (Auto) (0-2) /LPF Urine Microscopic RBC (0-5) /HPF Urine Microscopic WBC (0-5) /HPF Ur Epithelial Cells (None Seen) /HPF Urine Bacteria (None Seen) /HPF Urine Culture Reflexed (NO) Monoscreen (NEGATIVE) Influenza Type A Ag (NEGATIVE) Influenza Type B Ag (NEGATIVE) RSV (PCR) (NEGATIVE) SARS-CoV-2 (PCR) (NEGATIVE) - Progress Progress: improved Progress Note: 02/25/24 21:45 My medical decision making and the assignment of moderate complexity is based on review of the patient's past medical history, review of the patient's medication list, reviewed patient drug allergy list, history present illness and physical findings on examination. The workup in this patient includes placement of intravenous line, infusion of Protonix, infusion of Zofran, infusion of Dilaudid, amylase, lipase, urinalysis, test, viral swabs, monotest and infusion of crystalloid solution. Differential diagnosis includes is not limited to viral illness, dehydration, urinary tract infection, DKA, pancreatitis, 02/26/24 00:02 I interpreted the patient's laboratory data results. Based on the laboratory data results, the patient is diagnosed with COVID 19 infection. She has evidence of dehydration and has a reactive leukocytosis., Patient has mild leukocyte Estrace but only a few white cells and no nitrite. We will await the culture results before prescribing a antibiotic for possible urinary tract infection. Clinically, patient states she is feeling much better. She is ready to go home. We will discharge her after her second bag of crystalloid infusion Counseled pt/family regarding: lab results, diagnosis, need for follow-up Medical Desision Making - Diagnostic Testing Diagnostic test were ordered, analyzed, and reviewed by me: Yes - Risk of complications The pt has a mod risk of morbidity or mortality based on: Need for prescription drug management - Departure Departure Disposition: Home Clinical Impression: Viral syndrome, COVID-19 virus infection, Dehydration Condition: Stable Critical Care Time: No Referrals: DOCTOR,NO FAMILY [Primary Care Provider] - Follow up/PCP as directed Additional Instructions: Drink plenty of clear liquids before advancing your diet. Avoid fatty greasy spicy foods. Take your medications as prescribed. Call your prescribing provider later today, 02/26/2024, to make arrangements for follow-up appointment for further evaluation management. Prescriptions: Ondansetron ODT 4 MG [Zofran Odt 4 mg] 4 mg PO Q6H PRN PRN #10 tablet PRN Reason: Vomiting
[2024-02-25 20:34] VITALS: TEMP 96.6
[2024-02-25] MEDS ORDERED: Zofran 4 MG/2 ML VIAL ONE (21:22)
[2024-02-25] MEDS ORDERED: PROTONIX 40 MG IV IV ONE (21:22)
[2024-02-25] MEDS ORDERED: Hydromorphone 1 mg/ml Injection ONE (21:22)
[2024-02-25] MEDS ORDERED: Sodium Chloride 0.9% 1000 ML 1,000 ML ONE (21:22)
[2024-02-25] MEDS: Sodium Chloride 0.9% 1000 ML 1,000 ML IV STA (21:23)
[2024-02-25] MEDS: PROTONIX 40 MG IV IV ONE (21:23)
[2024-02-25] MEDS: Hydromorphone 1 mg/ml Injection IV ONE (21:23)
[2024-02-25] MEDS: Zofran 4 MG/2 ML VIAL IV ONE (21:23)
[2024-02-25 21:43] LABS: Absolute Neutrophil Ct (ANC) 13.32 x10^3/uL (1.56-6.13); BASOPHIL % 0.4 % (0.1-1.2); Basophil (Absolute #) 0.06 x10^3/uL (0.01-0.08); Eosinophil % 0.1 % (0.7-5.8); Eosinophil (Absolute #) 0.01 x10^3/uL (0.04-0.36); Hematocrit 48.2 % (34.1-44.9); Hemoglobin 16.7 g/dL (11.2-15.7); IMMATURE GRAN # 0.11 x10^3u/L (0.001-0.031); IMMATURE GRAN % 0.7 % (0.001-0.429); Lymphocyte (Absolute #) 0.82 x10^3/uL (1.18-3.74); Lymphocytes % 5.4 % (19.3-51.7); Mean Cell Volume 84.4 fL (79.4-94.8); Mean Corpuscular Hemoglobin 29.2 pg (25.6-32.2); Mean Corpuscular Hgb Concent. 34.6 g/dL (32.2-35.5); Mean Platelet Volume 10.7 fL (9.4-12.3); Monocyte (Absolute #) 0.88 x10^3/uL (0.24-0.86); Monocytes % 5.8 % (4.7-12.5); Neutrophil % 87.6 % (34.0-71.1); Platelet Count 388 x10^3/uL (182-369); Red Blood Count 5.71 x10^6/uL (3.93-5.22); Red Cell Distribution Width 13.5 % (11.7-14.4); White Blood Count 15.2 x10^3/uL (3.98-10.04)
[2024-02-25 22:03] LABS: ALBUMIN 4.8 g/dL (3.5-5.0); ANION GAP 18.5 MEQ/L (5-15); BILIRUBIN,TOTAL 0.9 mg/dL (0.2-1.3); Calcium 9.5 mg/dL (8.4-10.2); Creatinine 1 0.81 mg/dL (0.52-1.04); EST GLOMERULAR FILTRATION RATE 95.2 ML/MIN; Potassium 3.9 mmol/L (3.5-5.1); Total Protein 8.9 g/dL (6.3-8.2)
[2024-02-25] MEDS ORDERED: Lactated Ringers 1,000 ML IV ONE (22:23)
[2024-02-25] MEDS: Lactated Ringers 1,000 ML IV ONE (22:24)
[2024-02-25 22:25] LABS: HCG SERUM TEST NEGATIVE (NEGATIVE)
[2024-02-25 22:27] VITALS: RESP 16
[2024-02-25 22:33] LABS: INFLUENZA A NEGATIVE (NEGATIVE); INFLUENZA B NEGATIVE (NEGATIVE); RESPIRATORY SYNCTIAL VIRUS NEGATIVE (NEGATIVE)
[2024-02-25 22:41] LABS: SARS-CoV-2 Xpert Express POSITIVE (NEGATIVE)
[2024-02-25 23:41] LABS: Appearance Clear (Clear); Bacteria None Seen /HPF (None Seen); Bilirubin Negative (Negative); Blood Trace (Negative); Epithelial Cells Rare /HPF (None Seen); Glucose, Urine Negative (Negative); Hyaline Casts NONE SEEN /LPF (0-2); Ketones Negative (Negative); Leukocyte Esterase Small (Negative); Nitrite Negative (Negative); Ph 6.5 (4.6-8.0); Protein,Urine Dip 30 (Negative); RBC 21-50 /HPF (0-5); Specific Gravity 1.025 (1.005-1.030); Urobilinogen 0.2 mg/dL (0.2)
[2024-02-26 00:07] VITALS: BP 129/63; PULSE 91; O2SAT 97
== END 2024-02-26 00:26 | disposition home or self-care (01) ==
LOC: ED 20:17
DX: U07.1 COVID-19 (principal); B34.9 Viral infection, unspecified; E86.0 Dehydration; R11.2 Nausea with vomiting, unspecified; M79.10 Myalgia, unspecified site; R51.9 Headache, unspecified; E11.9 Type 2 diabetes mellitus without complications; Z72.0 Tobacco use; Z79.899 Other long term (current) drug therapy
CPT/HCPCS: 0241U; 36415; 80053; 81001; 82150; 83690; 84703; 85025; 86308; 87086; 96360; 96361; 96374; 96375; 99285; 99284; J1171; J2405